=== PATIENT | male | born 1965 | race Two or more races ===

== ENCOUNTER → 2017-03-08 09:12 | Outpatient (POV) | payer MEDICAID, SELFPAY ==
[2017-03-08 09:26] VITALS: BP 134/84; PULSE 78; RESP 18; O2SAT 94; BMI 40.6
--- NOTE | 2017-03-08 09:39 | HMH.PAINSOAP ---
[facility] Pain Management SOAP Note Subjective:: This patient is a very pleasant 51-year-old white male that returns to our pain clinic today for medication refills. We have treated this patient for quite some time for chronic low back pain secondary to degenerative disc disease lumbar spine with levels. Lumbar spondylosis. Multilevel lumbar facet arthropathy. We treated the patient with injective therapy including medial branch blocks lumbar spine multiple levels. His last series of injections was October 2016. Patient reports today that injections lasted until the middle of December. Today he describes his low back pain is constant, dull, aching. He rates the pain 6/10. Patient requesting a repeat medial branch block bilateral L3-4, L4-5, L5-S1. I think this is reasonable due to the fact he gets to months relief we manage the patient with [place] 7.5 mg 1 p.o. 3 times daily. Patient reports pain medicine decreases the pain by 50%. He is not reporting side effects from the pain medication. I will refill his pain medicine today. His [place] #[id number] is been reviewed and appropriate. His UDS is been appropriate in the past. Him 2 prescriptions. Also, patient complained of right trapezius muscle spasm. Upon examination he has extreme point tenderness over the right trapezius muscle. We will attempt approval from insurance for right trapezius trigger point injection. Objective:: Wake alert oriented ?3. In no distress. Flexion extension lumbar somewhat guarded secondary to pain. Deep tendon reflexes upper and lower extremities normal. Motor upper and lower extremity normal. There is no gross sensory deficit. Gait is normal. Assessment:: Degenerative disc disease lumbar spine with levels. Lumbar radiculopathy symptoms. Lumbar facet arthropathy. Lumbar spondylosis. Myofascial pain syndrome right trapezius muscle Plan:: I will refill the patient's pain medication. 2 prescriptions for [place] 7.5 mg 1 p.o. 3 times daily. I will schedule patient for medial branch block L3-4, L4-5, L5-S1 bilateral. Also, trigger point injections of the right trapezius muscle.
--- NOTE | 2017-03-08 09:44 | P.CONS_ITS ---
[facility] Pain Management SOAP Note Subjective:: This patient is a very pleasant 51-year-old white male that returns to our pain clinic today for medication refills. We have treated this patient for quite some time for chronic low back pain secondary to degenerative disc disease lumbar spine with levels. Lumbar spondylosis. Multilevel lumbar facet arthropathy. We treated the patient with injective therapy including medial branch blocks lumbar spine multiple levels. His last series of injections was October 2016. Patient reports today that injections lasted until the middle of December. Today he describes his low back pain is constant, dull, aching. He rates the pain 6/10. Patient requesting a repeat medial branch block bilateral L3-4, L4-5, L5-S1. I think this is reasonable due to the fact he gets to months relief we manage the patient with [place] 7.5 mg 1 p.o. 3 times daily. Patient reports pain medicine decreases the pain by 50%. He is not reporting side effects from the pain medication. I will refill his pain medicine today. His [place] #[id number] is been reviewed and appropriate. His UDS is been appropriate in the past. Him 2 prescriptions. Also, patient complained of right trapezius muscle spasm. Upon examination he has extreme point tenderness over the right trapezius muscle. We will attempt approval from insurance for right trapezius trigger point injection. Objective:: Wake alert oriented ?3. In no distress. Flexion extension lumbar somewhat guarded secondary to pain. Deep tendon reflexes upper and lower extremities normal. Motor upper and lower extremity normal. There is no gross sensory deficit. Gait is normal. Assessment:: Degenerative disc disease lumbar spine with levels. Lumbar radiculopathy symptoms. Lumbar facet arthropathy. Lumbar spondylosis. Myofascial pain syndrome right trapezius muscle Plan:: I will refill the patient's pain medication. 2 prescriptions for [place] 7.5 mg 1 p.o. 3 times daily. I will schedule patient for medial branch block L3-4, L4- 5, L5-S1 bilateral. Also, trigger point injections of the right trapezius muscle.
[2017-03-08 13:14] LABS: Amphetamine/Metha Screen,Urine Negative ng/mL (<1000); Barbiturates Screen,Urine Negative ng/mL (<200); Benzodiazepines Screen,Urine Negative ng/mL (200); Cannabinoid Screen,Urine Negative ng/mL (<50); Cocaine Screen,Urine Negative ng/g (<300); Methadone Screen,Urine Negative ng/mL (<300); Opiate Screen,Urine Positive ng/mL (<300); Phencyclidine Screen,Urine Negative ng/mL (<25)
[2017-03-22 09:09] LABS: Codeine Negative (Cutoff=100); Hydrocodone Positive (.); Hydromorphone Positive (.); Morphine Negative (Cutoff=100)
[2017-03-22 10:47] LABS: Opiates Positive (.)
== END ==
PROVIDERS: PCP Family Medicine; Visit Provider Nurse Anesthetist, Certified Registered
DX: M51.16 Intervertebral disc disorders with radiculopathy, lumbar region (principal); M79.7 Fibromyalgia
CPT/HCPCS: 80305; 80361; 99212; G0480

== ENCOUNTER → 2017-04-02 12:53 | Day surgery (SDC) | payer MEDICAID, SELFPAY ==
--- NOTE | 2017-04-02 13:02 | HMH.PMPROC ---
- Procedure Date: 04/02/17 Time: 13:02 Anesthesiologist:: Raymond Rousseau MD Complications:: None Pre-procedure Diagnosis:: Degenerative disc disease of lumbar spine with lumbar spondylosis and facet arthropathy. Post-procedure Diagnosis:: Same Indications for Procedure:: She has a pleasant 51-year-old male who we are treating for low back pain with lumbar spondylosis. He had previous lumbar medial branch blocks at L3-L4, L4-L5 and L5-S1. He did well with this for several months. His pain is starting to return. We will do repeat medial branch blocks/facet joint injections at L3-L4, L4-5 and L5-S1 bilaterally. He is also on [place] 7.5 mg 3 times daily. His [place] and urine drug screen are all appropriate. We will do his injection today. Procedure Details:: Lumbar medial branch block Informed consent was obtained and the risks and benefits of the procedure was explained to the patient. The back was prepped using ChloraPrep. The skin and subcutaneous tissues were anesthetized using lidocaine. I placed 22-gauge spinal needles into the facet joint/medial branches of L3-L4, L4-L5 and L5-S1 bilaterally. Needle placement was confirmed with dye. After this we injected 3 mL bupivacaine 0.25% and Depo-Medrol 13 mg into each facet joint/medial branch of L3-L4, L5 and L5-S1 bilaterally. We used a total of 80 mg Depo-Medrol for all 3 levels bilaterally. The patient tolerated the procedure well with no complications. Plan and Disposition:: We will follow-up in 2 weeks. We will reevaluate his symptoms at that time.
[2017-04-02 13:04] VITALS: BP 140/80; PULSE 75; RESP 18; TEMP 36.7; O2SAT 97; BMI 40.6
--- NOTE | 2017-04-02 13:07 | P.PCN_ITS ---
- Procedure Date: 04/02/17 Time: 13:02 Anesthesiologist:: Raymond Rousseau MD Complications:: None Pre-procedure Diagnosis:: Degenerative disc disease of lumbar spine with lumbar spondylosis and facet arthropathy. Post-procedure Diagnosis:: Same Indications for Procedure:: She has a pleasant 51-year-old male who we are treating for low back pain with lumbar spondylosis. He had previous lumbar medial branch blocks at L3 -L4, L4-L5 and L5-S1. He did well with this for several months. His pain is starting to return. We will do repeat medial branch blocks/facet joint injections at L3-L4, L4-5 and L5-S1 bilaterally. He is also on [place] 7.5 mg 3 times daily. His [place] and urine drug screen are all appropriate. We will do his injection today. Procedure Details:: Lumbar medial branch block Informed consent was obtained and the risks and benefits of the procedure was explained to the patient. The back was prepped using ChloraPrep. The skin and subcutaneous tissues were anesthetized using lidocaine. I placed 22-gauge spinal needles into the facet joint/medial branches of L3-L4, L4-L5 and L5-S1 bilaterally. Needle placement was confirmed with dye. After this we injected 3 mL bupivacaine 0.25% and Depo-Medrol 13 mg into each facet joint/medial branch of L3-L4, L5 and L5-S1 bilaterally. We used a total of 80 mg Depo- Medrol for all 3 levels bilaterally. The patient tolerated the procedure well with no complications. Plan and Disposition:: We will follow-up in 2 weeks. We will reevaluate his symptoms at that time.
[2017-04-02 13:14] VITALS: BP 136/73; PULSE 65; RESP 18
[2017-04-02 13:17] VITALS: BP 140/80; PULSE 70; RESP 20; O2SAT 99
[2017-04-02 13:48] VITALS: BP 142/95; PULSE 75; TEMP 36.7; O2SAT 96
== END ==
PROVIDERS: Family Provider Family Medicine; PCP Family Medicine; Visit Provider Anesthesiology
DX: M79.1 Myalgia (principal)
CPT/HCPCS: 20552; 64493; 64494; 64495; J1030; Q9966

== ENCOUNTER → 2017-05-11 09:57 | Outpatient (POV) | payer MEDICAID, SELFPAY ==
[2017-05-11 10:07] VITALS: BP 162/88; PULSE 80; RESP 20; O2SAT 99; BMI 40.6
--- NOTE | 2017-05-11 10:57 | HMH.PAINSOAP ---
[facility] Pain Management SOAP Note Subjective:: Patient is a pleasant 51-year-old male who presents today for follow-up after trigger point injections and a repeat medial branch block. Patient did not get much relief from his medial branch block however he did get 90% relief from his trigger point injections. Patient's pain pattern has changed since his RFA. Patient's pain is now no longer axial in nature it is radiating down both legs with the right leg being worse than the left. Patient has had lumbar epidural steroid injections in the past with good relief. Patient rates his pain a 6 out of 10 today. Patient also been on [place] 7.51 p.o. 3 times daily for a long time. Patient states the medication is no longer as effective as it used to be. Patient is still working every day. ROS General: no recent weight change, no fever, no sleep disturbances Respiratory: no cough, no shortness of air, no recurring pulmonary infections Cardiovascular/Peripheral Vascular: No chest pain, No palpitations, no edema, no shortness of breath. Gastrointestinal: no incontinence, normal bowel movements reported Genitourinary: no incontinence Musculoskeletal: Back pain, bilateral leg pain Psychiatric: normal mood/ affect, [denies depression], [denies anxiety] Neurological: Weakness in right extremity at times, [denies balance issues] Objective:: Physical Exam General: Alert and oriented x3, no acute distress, pleasant and cooperative, [on room air] Lungs: Resps E/U, Symmetrical chest expansion, Eyes: PERRL Musculoskeletal: Flexion and extension of lumbar spine somewhat guarded secondary to pain, deep tendon reflexes normal, strength in upper and lower extremities [5/5], lately antalgic gait noted, positive straight leg test bilaterally at 30?. Neurological: speech clear, lead loader equal, no gross sensory deficits MRI-L-SPINE W/O, MRI-3D RENDERING/MYELOGRAM INDICATION: LUMBAR SPONDYLOSIS Low back pain for 5 years. Bilateral leg pain. Right foot numbness and tingling. Right radiculopathy. No known injury TECHNIQUE: Sagittal STIR, T1, T2, axial T1 and T2. On 1.5T Siemens wide bore MRI. 3-D MR myelogram image set obtained & performed on MRI workstation. Additional sagittal thin section T2 weighted dataset obtained from this latter acquisition as well (---76 CPT) COMPARISON: No previous studies FINDINGS Vertebral bodies are intact. No compression fractures or vertebral body lesions . Conus appears satisfactory ending appropriately at L1 . . There is some moderate likely deep dependent edema within the prominent subcutaneous adipose overlying the the lumbar region. This less than 6 cm AP thickness of adipose throughout the back. This is particularly evident subcutaneous fat posterior to L2, L3 and thus L4 L5/S1 mild disc space narrowing. Asymmetric disc bulge scant broad-based disc protrusion seen encroach upon right foramen.. Also facet hypertrophy more pronounced to the right L5/S1.. Together these features yield moderate right foraminal encroachment-(as seen on sagittal image 5 , 6 and axial slice 29). L4/5, disc intact. Mild facet arthropathy and posterior element hypertrophy. Only slight narrowing of the neural foramen noted but overall unimpressive at this level. L3/4 disc intact with only questionable minor foraminal bulge. Insignificant. Neural foramen adequate bilateral. L2/3 disc intact. L1/2 disc intact . T12/L1 & T11/12 disc intact unremarkable. The 3-D MR myelogram image set shows no significant narrowing of the spinal canal IMPRESSION: .........../ L5/S1. Degenerative disc space narrowing, with asymmetric bulge /mild broad-based disc protrusion which encroaches upon right foramen. Also note developing Facet hypertrophy most evident to the right contributes to the moderate right foraminal narrowing. This is the most notable finding. Does the patient have RIGHT L5 radicular sym
--- NOTE | 2017-05-11 11:01 | P.CONS_ITS ---
[facility] Pain Management SOAP Note Subjective:: Patient is a pleasant 51-year-old male who presents today for follow- up after trigger point injections and a repeat medial branch block. Patient did not get much relief from his medial branch block however he did get 90% relief from his trigger point injections. Patient's pain pattern has changed since his RFA. Patient's pain is now no longer axial in nature it is radiating down both legs with the right leg being worse than the left. Patient has had lumbar epidural steroid injections in the past with good relief. Patient rates his pain a 6 out of 10 today. Patient also been on [place] 7.51 p.o. 3 times daily for a long time. Patient states the medication is no longer as effective as it used to be. Patient is still working every day. ROS General: no recent weight change, no fever, no sleep disturbances Respiratory: no cough, no shortness of air, no recurring pulmonary infections Cardiovascular/Peripheral Vascular: No chest pain, No palpitations, no edema, no shortness of breath. Gastrointestinal: no incontinence, normal bowel movements reported Genitourinary: no incontinence Musculoskeletal: Back pain, bilateral leg pain Psychiatric: normal mood/ affect, [denies depression], [denies anxiety] Neurological: Weakness in right extremity at times, [denies balance issues] Objective:: Physical Exam General: Alert and oriented x3, no acute distress, pleasant and cooperative, [ on room air] Lungs: Resps E/U, Symmetrical chest expansion, Eyes: PERRL Musculoskeletal: Flexion and extension of lumbar spine somewhat guarded secondary to pain, deep tendon reflexes normal, strength in upper and lower extremities [5/5], lately antalgic gait noted, positive straight leg test bilaterally at 30?. Neurological: speech clear, pediatric cns equal, no gross sensory deficits MRI-L-SPINE W/O, MRI-3D RENDERING/MYELOGRAM INDICATION: LUMBAR SPONDYLOSIS Low back pain for 5 years. Bilateral leg pain. Right foot numbness and tingling. Right radiculopathy. No known injury TECHNIQUE: Sagittal STIR, T1, T2, axial T1 and T2. On 1.5T Siemens wide bore MRI. 3-D MR myelogram image set obtained & performed on MRI workstation. Additional sagittal thin section T2 weighted dataset obtained from this latter acquisition as well (---76 CPT) COMPARISON: No previous studies FINDINGS Vertebral bodies are intact. No compression fractures or vertebral body lesions . Conus appears satisfactory ending appropriately at L1 . . There is some moderate likely deep dependent edema within the prominent subcutaneous adipose overlying the the lumbar region. This less than 6 cm AP thickness of adipose throughout the back. This is particularly evident subcutaneous fat posterior to L2, L3 and thus L4 L5/S1 mild disc space narrowing. Asymmetric disc bulge scant broad-based disc protrusion seen encroach upon right foramen.. Also facet hypertrophy more pronounced to the right L5/S1.. Together these features yield moderate right foraminal encroachment-(as seen on sagittal image 5 , 6 and axial slice 29). L4/5, disc intact. Mild facet arthropathy and posterior element hypertrophy. Only slight narrowing of the neural foramen noted but overall unimpressive at this level. L3/4 disc intact with only questionable minor foraminal bulge. Insignificant. Neural foramen adequate bilateral. L2/3 disc intact. L1/2 disc intact . T12/L1 & T11/12 disc intact unremarkable. The 3-D MR myelogram image set shows no significant narrowing of the spinal canal IM
--- NOTE | 2017-05-13 14:05 | PC.PHONENOTE ---
called in Rx for Diclofenac 75mg BID with 1 refill to pt's pharmacy
== END ==
PROVIDERS: Family Provider Family Medicine; PCP Family Medicine; Visit Provider Clinical Nurse Specialist Family Health
DX: M54.16 Radiculopathy, lumbar region (principal)
CPT/HCPCS: 99212

== ENCOUNTER 2017-05-27 14:00 | Day surgery (SDC) | payer MEDICAID, SELFPAY ==
[2017-05-27 14:12] VITALS: BP 145/80; BP 155/74; BP 156/90; PULSE 70; PULSE 75; PULSE 88; RESP 18; TEMP 36.8; O2SAT 98; BMI 39.9
[2017-05-27 14:18] VITALS: BP 139/79; PULSE 78; RESP 18; O2SAT 96
--- NOTE | 2017-05-27 14:18 | P.PCN_ITS ---
- Procedure Date: 05/27/17 Time: 14:17 Anesthesiologist:: Raymond Rousseau MD Complications:: None Pre-procedure Diagnosis:: Degenerative disc disease of lumbar spine with lumbar radiculopathy symptoms and bulging disc Post-procedure Diagnosis:: Same Indications for Procedure:: Patient is a pleasant 51-year-old male who we are treating for low back pain with lumbar radiculopathy symptoms. He did not get much relief from medial branch blocks however he did get significant relief from trigger point injections. Most of his pain now is in his back radiating down his legs. We will do a lumbar epidural steroid injection today to see if this gives him relief of his pain symptoms. Procedure Details:: Lumbar epidural steroid injection informed consent was obtained and the risk and benefits of the procedure was explained to the patient. The patient was taken to the procedure room. The patient was placed prone on the procedure table. The patient was prepped and draped in sterile fashion. C-arm fluoroscopy was used to view the lumbar spine. Skin and subcutaneous tissues were anesthetized using lidocaine. I placed an 18-gauge epidural needle and advanced into the L4-L5 interspace using fluoroscopic guidance and [id number] to air. After confirmation of needle placement in the epidural space with dye I injected 2 mL of lidocaine 1.5 % with Depo-Medrol 80 mg. Patient tolerated the procedure well with no complications. Plan and Disposition:: We will follow-up in 2 weeks. Will reevaluate symptoms at that time.
== END 2017-05-27 14:15 | disposition home or self-care (01) ==
LOC: SC.PAINP 14:02
PROVIDERS: Family Provider Family Medicine; PCP Family Medicine; Visit Provider Anesthesiology
DX: M51.16 Intervertebral disc disorders with radiculopathy, lumbar region (principal)
CPT/HCPCS: 62323; J1040; Q9966

== ENCOUNTER → 2017-06-14 10:01 | Outpatient (POV) | payer MEDICAID, SELFPAY ==
[2017-06-14 11:32] VITALS: BP 141/82; PULSE 73; RESP 20; O2SAT 98; BMI 40.6
--- NOTE | 2017-06-14 12:29 | HMH.PAINSOAP ---
[facility] Pain Management SOAP Note Subjective:: Patient is a 51-year-old male who we are treating for low back pain with lumbar radiculopathy symptoms. Patient has done well with lumbar steroid injections in the past. Patient states that he is doing well with this 1. Patient does have some residual pain. Patient states his medication is not effective for him at this time. Patient also states that he broke out in a rash after his last injection. Patient states he still has the rash. Patient did not take any allergy medicine or Benadryl. Patient rates his pain a 7 out of 10 today. Patient is still trying to work full-time. Patient currently on Percocet 5 mg 1 p.o. 3 times daily. Patient's SAHIL #[id number] reviewed and appropriate. Patient will go for urine drug screen today. ROS General: no recent weight change, no fever, no sleep disturbances Respiratory: no cough, no shortness of air, no recurring pulmonary infections Cardiovascular/Peripheral Vascular: No chest pain, No palpitations, no edema, no shortness of breath. Gastrointestinal: no incontinence, normal bowel movements reported Genitourinary: no incontinence Musculoskeletal: Back pain, leg pain Psychiatric: normal mood/ affect Neurological: [denies weakness in extremities], [denies balance issues] Objective:: Physical Exam General: Alert and oriented x3, no acute distress, pleasant and cooperative, [on room air] Lungs: Resps E/U, Symmetrical chest expansion, Eyes: PERRL Musculoskeletal: Flexion and extension of lumbar spine somewhat guarded secondary to pain, deep tendon reflexes normal, strength in upper and lower extremities [5/5], slightly antalgic gait noted Neurological: speech clear, studio technician video operator equal, no gross sensory deficits Assessment:: Generative disc disease of the lumbar spine with lumbar spondylosis and lumbar radiculopathy. Plan:: We will give the patient Percocet 7.5 mg 1 p.o. 4 times daily. We will give him 2 months worth of prescriptions and follow-up with him in 2 months. We will see if this helps. Patient has had this regimen with an orthopedic surgeon and it did seem to work well. At this time we will not go forward with any other injections due to his rash. I discussed with the patient he should take some allergy medication. Patient's Sahil reviewed. Patient's urine drug screen is pending. Dr. Rousseau has reviewed this chart and agrees with this plan of care. Patient has been prescribed a controlled substance after being counseled on the medication, medication safety, and possible side effects. SAHIL report has been obtained and reviewed prior to prescription and found to be appropriate. Opioid contract was reviewed and signed by the patient, and that they have agreed to all of the terms set forth by our compliance program. This note was dictated using voice recognition software and may contain errors or omissions
--- NOTE | 2017-06-14 12:51 | P.CONS_ITS ---
[facility] Pain Management SOAP Note Subjective:: Patient is a 51-year-old male who we are treating for low back pain with lumbar radiculopathy symptoms. Patient has done well with lumbar steroid injections in the past. Patient states that he is doing well with this 1. Patient does have some residual pain. Patient states his medication is not effective for him at this time. Patient also states that he broke out in a rash after his last injection. Patient states he still has the rash. Patient did not take any allergy medicine or Benadryl. Patient rates his pain a 7 out of 10 today. Patient is still trying to work full-time. Patient currently on Percocet 5 mg 1 p.o. 3 times daily. Patient's SAHIL #[id number] reviewed and appropriate. Patient will go for urine drug screen today. ROS General: no recent weight change, no fever, no sleep disturbances Respiratory: no cough, no shortness of air, no recurring pulmonary infections Cardiovascular/Peripheral Vascular: No chest pain, No palpitations, no edema, no shortness of breath. Gastrointestinal: no incontinence, normal bowel movements reported Genitourinary: no incontinence Musculoskeletal: Back pain, leg pain Psychiatric: normal mood/ affect Neurological: [denies weakness in extremities], [denies balance issues] Objective:: Physical Exam General: Alert and oriented x3, no acute distress, pleasant and cooperative, [ on room air] Lungs: Resps E/U, Symmetrical chest expansion, Eyes: PERRL Musculoskeletal: Flexion and extension of lumbar spine somewhat guarded secondary to pain, deep tendon reflexes normal, strength in upper and lower extremities [5/5], slightly antalgic gait noted Neurological: speech clear, franchise field consultant equal, no gross sensory deficits Assessment:: Generative disc disease of the lumbar spine with lumbar spondylosis and lumbar radiculopathy. Plan:: We will give the patient Percocet 7.5 mg 1 p.o. 4 times daily. We will give him 2 months worth of prescriptions and follow-up with him in 2 months. We will see if this helps. Patient has had this regimen with an orthopedic surgeon and it did seem to work well. At this time we will not go forward with any other injections due to his rash. I discussed with the patient he should take some allergy medication. Patient's Sahil reviewed. Patient's urine drug screen is pending. Dr. Rousseau has reviewed this chart and agrees with this plan of care. Patient has been prescribed a controlled substance after being counseled on the medication, medication safety, and possible side effects. SAHIL report has been obtained and reviewed prior to prescription and found to be appropriate. Opioid contract was reviewed and signed by the patient, and that they have agreed to all of the terms set forth by our compliance program. This note was dictated using voice recognition software and may contain errors or omissions
[2017-06-14 13:50] LABS: Amphetamine/Metha Screen,Urine Negative ng/mL (<1000); Barbiturates Screen,Urine Negative ng/mL (<200); Benzodiazepines Screen,Urine Negative ng/mL (200); Cannabinoid Screen,Urine Negative ng/mL (<50); Cocaine Screen,Urine Negative ng/g (<300); Methadone Screen,Urine Negative ng/mL (<300); Opiate Screen,Urine Negative ng/mL (<300); Phencyclidine Screen,Urine Negative ng/mL (<25)
[2017-06-20 18:50] LABS: Opiates Negative (Cutoff=100); Oxymorphone (GC/MS) 402 ng/mL (Cutoff=100)
== END ==
PROVIDERS: Family Provider Family Medicine; PCP Family Medicine; Visit Provider Clinical Nurse Specialist Family Health
DX: M54.16 Radiculopathy, lumbar region (principal); Z79.891 Long term (current) use of opiate analgesic
CPT/HCPCS: 80305; 80361; 80365; 99212; G0480

== ENCOUNTER → 2017-08-09 09:34 | Outpatient (POV) | payer MEDICAID, SELFPAY ==
[2017-08-09 10:21] VITALS: BP 153/91; PULSE 77; RESP 18; O2SAT 98; BMI 40.6
--- NOTE | 2017-08-09 10:22 | HMH.PAINSOAP ---
[facility] Pain Management SOAP Note Subjective:: Patient is a pleasant 51-year-old male who presents today for medication refills at his last vist we increased his medication to Percocet 7.5 milligrams 1 p.o. 4 times daily. Patient states that this helps quite a bit. He denies any side effects to the medication. Patient states he is having pain at nighttime which is keeping him awake. Patient never tried gabapentin. Patient and I discussed potential nerve stimulation in the future. Patient is interested in this. Patient rates his pain a 6 out of 10 today. Patient is still working full-time. Patient's SAHIL #[id number] reviewed and appropriate. Patient's drug screens been appropriate in the past. ROS General: no recent weight change, no fever, no sleep disturbances Respiratory: no cough, no shortness of air, no recurring pulmonary infections Cardiovascular/Peripheral Vascular: No chest pain, No palpitations, no edema, no shortness of breath. Gastrointestinal: no incontinence, normal bowel movements reported Genitourinary: no incontinence Musculoskeletal: Back pain, bilateral knee pain, neck pain Psychiatric: normal mood/ affect Neurological: [denies weakness in extremities], [denies balance issues] Objective:: Physical Exam General: Alert and oriented x3, no acute distress, pleasant and cooperative, [on room air] Lungs: Resps E/U, Symmetrical chest expansion, Eyes: PERRL Musculoskeletal: Flexion and extension of lumbar spine somewhat guarded secondary to pain, deep tendon reflexes normal, strength in upper and lower extremities [5/5], [abnormal gait noted] Neurological: speech clear, fuel management handler equal, no gross sensory deficits Assessment:: Degenerative disc disease of the lumbar spine with lumbar radiculopathy, lumbar spondylosis, bilateral knee pain Plan:: We will refill the patient's Percocet 7.5 mg 1 p.o. 4 times daily. Will give him 2 months worth of prescriptions and follow-up with him in 2 months. Patient and I did discuss neuro stimulation he did seem interested in this. However we will try gabapentin 300 mg 1 p.o. nightly prior. Patient and I discussed potential side effects. Patient's Sahil and urine drug screen both reviewed. Dr. Rousseau has reviewed this chart and agrees with this plan of care. Patient has been prescribed a controlled substance after being counseled on the medication, medication safety, and possible side effects. SAHIL report has been obtained and reviewed prior to prescription and found to be appropriate. Opioid contract was reviewed and signed by the patient, and that they have agreed to all of the terms set forth by our compliance program. This note was dictated using voice recognition software and may contain errors or omissions
--- NOTE | 2017-08-09 10:25 | P.CONS_ITS ---
[facility] Pain Management SOAP Note Subjective:: Patient is a pleasant 51-year-old male who presents today for medication refills at his last vist we increased his medication to Percocet 7.5 milligrams 1 p.o. 4 times daily. Patient states that this helps quite a bit. He denies any side effects to the medication. Patient states he is having pain at nighttime which is keeping him awake. Patient never tried gabapentin. Patient and I discussed potential nerve stimulation in the future. Patient is interested in this. Patient rates his pain a 6 out of 10 today. Patient is still working full-time. Patient's SAHIL #[id number] reviewed and appropriate. Patient's drug screens been appropriate in the past. ROS General: no recent weight change, no fever, no sleep disturbances Respiratory: no cough, no shortness of air, no recurring pulmonary infections Cardiovascular/Peripheral Vascular: No chest pain, No palpitations, no edema, no shortness of breath. Gastrointestinal: no incontinence, normal bowel movements reported Genitourinary: no incontinence Musculoskeletal: Back pain, bilateral knee pain, neck pain Psychiatric: normal mood/ affect Neurological: [denies weakness in extremities], [denies balance issues] Objective:: Physical Exam General: Alert and oriented x3, no acute distress, pleasant and cooperative, [ on room air] Lungs: Resps E/U, Symmetrical chest expansion, Eyes: PERRL Musculoskeletal: Flexion and extension of lumbar spine somewhat guarded secondary to pain, deep tendon reflexes normal, strength in upper and lower extremities [5/5], [abnormal gait noted] Neurological: speech clear, delinquent tax collector equal, no gross sensory deficits Assessment:: Degenerative disc disease of the lumbar spine with lumbar radiculopathy, lumbar spondylosis, bilateral knee pain Plan:: We will refill the patient's Percocet 7.5 mg 1 p.o. 4 times daily. Will give him 2 months worth of prescriptions and follow-up with him in 2 months. Patient and I did discuss neuro stimulation he did seem interested in this. However we will try gabapentin 300 mg 1 p.o. nightly prior. Patient and I discussed potential side effects. Patient's Sahil and urine drug screen both reviewed. Dr. Rousseau has reviewed this chart and agrees with this plan of care. Patient has been prescribed a controlled substance after being counseled on the medication, medication safety, and possible side effects. SAHIL report has been obtained and reviewed prior to prescription and found to be appropriate. Opioid contract was reviewed and signed by the patient, and that they have agreed to all of the terms set forth by our compliance program. This note was dictated using voice recognition software and may contain errors or omissions
== END ==
PROVIDERS: Family Provider Family Medicine; PCP Family Medicine; Visit Provider Clinical Nurse Specialist Family Health
DX: M47.26 Other spondylosis with radiculopathy, lumbar region (principal); M25.562 Pain in left knee; M25.561 Pain in right knee
CPT/HCPCS: 99212

== ENCOUNTER → 2017-10-25 10:00 | Outpatient (POV) | payer MEDICAID, SELFPAY ==
[2017-10-25 10:30] VITALS: BP 163/99; PULSE 75; RESP 18; O2SAT 96; BMI 39.1
--- NOTE | 2017-10-25 11:09 | HMH.PAINSOAP ---
[facility] Pain Management SOAP Note Subjective:: Patient is a 51-year-old male who presents today for medication refills. Patient was started on gabapentin and his last visit and he states he is doing well with it at bedtime. Patient is currently being medically managed on Percocet 7.5 mg 1 p.o. 4 times daily. He denies side effects to this he states that it helps up to 80%. Patient's SAHIL #[id number] reviewed and appropriate. Patient's urine drug screen has been appropriate in the past. Patient states he is still having a little bit of nerve pain. We will change his gabapentin to twice daily dose. He rates his pain a 5 out of 10 today. Mostly in his low back and legs ROS General: no recent weight change, no fever, no sleep disturbances Respiratory: no cough, no shortness of air, no recurring pulmonary infections Cardiovascular/Peripheral Vascular: No chest pain, No palpitations, no edema, no shortness of breath. Gastrointestinal: no incontinence, normal bowel movements reported Genitourinary: no incontinence Musculoskeletal: Back pain, leg pain, knee pain Psychiatric: normal mood/ affect Neurological: [denies weakness in extremities], [denies balance issues] Objective:: Physical Exam General: Alert and oriented x3, no acute distress, pleasant and cooperative, [on room air] Lungs: Resps E/U, Symmetrical chest expansion, Eyes: PERRL Musculoskeletal: Flexion and extension of lumbar spine somewhat guarded secondary to pain, deep tendon reflexes normal, strength in upper and lower extremities [5/5], [abnormal gait noted] Neurological: speech clear, material cutter equal, no gross sensory deficits Assessment:: Degenerative disc disease lumbar spine with lumbar radiculopathy, lumbar spondylosis, bilateral knee pain Plan:: Refill the patient's Percocet 7.5 mg 1 p.o. 4 times daily. We will give him 2 months worth of prescriptions and follow-up with him in 2 months. We will change his gabapentin to 300 mg [address] Rousseau has reviewed this chart and agrees with this plan of care. We will also start the patient on Celebrex 100 mg 1 p.o. twice daily. Patient has been prescribed a controlled substance after being counseled on the medication, medication safety, and possible side effects. SAHIL report has been obtained and reviewed prior to prescription and found to be appropriate. Opioid contract was reviewed and signed by the patient, and that they have agreed to all of the terms set forth by our compliance program. This note was dictated using voice recognition software and may contain errors or omissions
--- NOTE | 2017-10-25 11:12 | P.CONS_ITS ---
[facility] Pain Management SOAP Note Subjective:: Patient is a 51-year-old male who presents today for medication refills. Patient was started on gabapentin and his last visit and he states he is doing well with it at bedtime. Patient is currently being medically managed on Percocet 7.5 mg 1 p.o. 4 times daily. He denies side effects to this he states that it helps up to 80%. Patient's SAHIL #[id number] reviewed and appropriate. Patient's urine drug screen has been appropriate in the past. Patient states he is still having a little bit of nerve pain. We will change his gabapentin to twice daily dose. He rates his pain a 5 out of 10 today. Mostly in his low back and legs ROS General: no recent weight change, no fever, no sleep disturbances Respiratory: no cough, no shortness of air, no recurring pulmonary infections Cardiovascular/Peripheral Vascular: No chest pain, No palpitations, no edema, no shortness of breath. Gastrointestinal: no incontinence, normal bowel movements reported Genitourinary: no incontinence Musculoskeletal: Back pain, leg pain, knee pain Psychiatric: normal mood/ affect Neurological: [denies weakness in extremities], [denies balance issues] Objective:: Physical Exam General: Alert and oriented x3, no acute distress, pleasant and cooperative, [on room air] Lungs: Resps E/U, Symmetrical chest expansion, Eyes: PERRL Musculoskeletal: Flexion and extension of lumbar spine somewhat guarded secondary to pain, deep tendon reflexes normal, strength in upper and lower extremities [5/5], [abnormal gait noted] Neurological: speech clear, academic support specialist equal, no gross sensory deficits Assessment:: Degenerative disc disease lumbar spine with lumbar radiculopathy, lumbar spondylosis, bilateral knee pain Plan:: Refill the patient's Percocet 7.5 mg 1 p.o. 4 times daily. We will give him 2 months worth of prescriptions and follow-up with him in 2 months. We will change his gabapentin to 300 mg [address] Rousseau has reviewed this chart and agrees with this plan of care. We will also start the patient on Celebrex 100 mg 1 p.o. twice daily. Patient has been prescribed a controlled substance after being counseled on the medication, medication safety, and possible side effects. SAHIL report has been obtained and reviewed prior to prescription and found to be appropriate. Opioid contract was reviewed and signed by the patient, and that they have agreed to all of the terms set forth by our compliance program. This note was dictated using voice recognition software and may contain errors or omissions
[2017-10-25 11:18] LABS: Amphetamine/Metha Screen,Urine Negative ng/mL (<1000); Barbiturates Screen,Urine Negative ng/mL (<200); Benzodiazepines Screen,Urine Negative ng/mL (<200); Cannabinoid Screen,Urine Negative ng/mL (<50); Cocaine Screen,Urine Negative ng/mL (<300); Methadone Screen,Urine Negative ng/mL (<300); Opiate Screen,Urine Positive ng/mL (<300); Phencyclidine Screen,Urine Negative ng/mL (<25)
[2017-10-29 12:20] LABS: Oxycodone (GC/MS) 1237 ng/mL (Cutoff=100)
[2017-10-29 13:14] LABS: Opiates Negative (Cutoff=100); Oxymorphone (GC/MS) 2634 ng/mL (Cutoff=100)
== END ==
PROVIDERS: Family Provider Family Medicine; PCP Family Medicine; Visit Provider Clinical Nurse Specialist Family Health
DX: M51.16 Intervertebral disc disorders with radiculopathy, lumbar region (principal); M47.896 Other spondylosis, lumbar region; M25.561 Pain in right knee; M25.562 Pain in left knee
CPT/HCPCS: 80305; 80361; 80365; 99212; G0480

== ENCOUNTER → 2017-12-20 10:06 | Outpatient (POV) | payer MEDICAID, SELFPAY ==
[2017-12-20 10:24] VITALS: BP 152/87; PULSE 76; RESP 18; O2SAT 98; BMI 39.9
--- NOTE | 2017-12-20 10:33 | HMH.PAINSOAP ---
[facility] Pain Management SOAP Note Subjective:: Patient is a pleasant 51-year-old male who presents today for medication refills. Patient has been started on gabapentin 300 mg 1 p.o. twice daily. He states that this has done well for him. Patient is currently being medically managed with Percocet 7.5 mg 1 p.o. 4 times a day. He denies any side effects. He says it helps however he does have some increased pain with his shahzad work. Patient's SAHIL #[id number] reviewed and appropriate. Patient has been alternating between Tylenol and ibuprofen. He rates his pain a 7 out of 10 today. This is a little higher than his typical pain. It is all mostly in his low back and legs. ROS General: no recent weight change, no fever, no sleep disturbances Respiratory: no cough, no shortness of air, no recurring pulmonary infections Cardiovascular/Peripheral Vascular: No chest pain, No palpitations, no edema, no shortness of breath. Gastrointestinal: no incontinence, normal bowel movements reported Genitourinary: no incontinence Musculoskeletal: Back pain, leg pain Psychiatric: normal mood/ affect Neurological: [denies weakness in extremities], [denies balance issues] Objective:: Physical Exam General: Alert and oriented x3, no acute distress, pleasant and cooperative, [on room air] Lungs: Resps E/U, Symmetrical chest expansion, Eyes: PERRL Musculoskeletal: Flexion and extension of lumbar spine somewhat guarded secondary to pain, deep tendon reflexes normal, strength in upper and lower extremities [5/5], slightly antalgic gait noted Neurological: speech clear, staffing branch manager equal, no gross sensory deficits Assessment:: Degenerative disc disease lumbar spine with lumbar radiculopathy, lumbar spondylosis, bilateral knee pain Plan:: We will refill the patient's Percocet and change it to 10 mg 1 p.o. 3 times daily we will give him 1 month prescription. Patient will follow-up in 3 months. Patient is going to call us if he needs to be seen after 1 month for medication changes. Patient will continue his gabapentin 300 mg [address] Rousseau is reviewed this chart and agrees with this plan and plan of care. Patient has been prescribed a controlled substance after being counseled on the medication, medication safety, and possible side effects. SAHIL report has been obtained and reviewed prior to prescription and found to be appropriate. Opioid contract was reviewed and signed by the patient, and that they have agreed to all of the terms set forth by our compliance program. This note was dictated using voice recognition software and may contain errors or omissions
== END ==
PROVIDERS: Family Provider Family Medicine; PCP Family Medicine; Visit Provider Clinical Nurse Specialist Family Health
DX: M51.16 Intervertebral disc disorders with radiculopathy, lumbar region (principal); M47.896 Other spondylosis, lumbar region; M25.562 Pain in left knee; M25.561 Pain in right knee
CPT/HCPCS: 99213

== ENCOUNTER → 2018-03-21 09:57 | Outpatient (POV) | payer MEDICAID, SELFPAY ==
[2018-03-21 10:10] VITALS: BP 144/93; PULSE 85; RESP 18; O2SAT 98; BMI 40.1
--- NOTE | 2018-03-21 10:24 | HMH.PAINSOAP ---
[facility] Pain Management SOAP Note Subjective:: Is a pleasant 52-year-old male who presents today for medication refills. Patient is currently on cassette 10 mg 1 p.o. 3 times daily along with gabapentin 300 mg 1 p.o. twice daily. Patient is doing well with this denies side effects. He rates his pain today a 7 out of 10 mostly in his hip and back. Patient has not had an epidural injection for quite some time and has had good success with it in the past. Patient Kaspar reviewed and appropriate. Patient's urine drug screen has been appropriate. Patient is not on any anticoagulation therapy. Patient is continuing a home stretching program. With his injections he gets about 80% relief up to 4 months of his pain symptoms. ROS General: no recent weight change, no fever, no sleep disturbances Respiratory: no cough, no shortness of air, no recurring pulmonary infections Cardiovascular/Peripheral Vascular: No chest pain, No palpitations, no edema, no shortness of breath. Gastrointestinal: no incontinence, normal bowel movements reported Genitourinary: no incontinence Musculoskeletal: Back pain, leg pain Psychiatric: normal mood/ affect Neurological: [denies weakness in extremities], [denies balance issues] Objective:: Physical Exam General: Alert and oriented x3, no acute distress, pleasant and cooperative, [on room air] Lungs: Resps E/U, Symmetrical chest expansion, Eyes: PERRL Musculoskeletal: Flexion and extension of lumbar spine somewhat guarded secondary to pain, deep tendon reflexes normal, strength in upper and lower extremities [5/5], antalgic gait noted, positive straight leg raise test on the right side at 30 degrees Neurological: speech clear, building energy consultant equal, no gross sensory deficits Assessment:: degenerative disc disease lumbar spine with lumbar radiculopathy, lumbar spondylosis Plan:: We will schedule the patient for an L4-L5 lumbar epidural steroid injection. I will follow-up with him after this. We will refill the patient's Percocet 10 mg 1 p.o. 3 times daily and gabapentin 300 mg 1 p.o. twice daily and give him 2 months worth of medication. I will see him back after his injection. Patient's been instructed to call the office if he has any issues prior to his next appointment. Patient has been prescribed a controlled substance after being counseled on the medication, medication safety, and possible side effects. SAHIL report has been obtained and reviewed prior to prescription and found to be appropriate. Opioid contract was reviewed and signed by the patient, and that they have agreed to all of the terms set forth by our compliance program. Dr. Rousseau has reviewed this note and agrees with this plan of care. This note was dictated using voice recognition software and may contain errors or omissions
[2018-03-21 13:16] LABS: Amphetamine/Metha Screen,Urine Negative ng/mL (<1000); Barbiturates Screen,Urine Negative ng/mL (<200); Benzodiazepines Screen,Urine Negative ng/mL (<200); Cannabinoid Screen,Urine Negative ng/mL (<50); Cocaine Screen,Urine Negative ng/mL (<300); Methadone Screen,Urine Negative ng/mL (<300); Opiate Screen,Urine Negative ng/mL (<300); Phencyclidine Screen,Urine Negative ng/mL (<25)
[2018-03-25 05:16] LABS: Oxycodone (GC/MS) 461 ng/mL (Cutoff=100)
[2018-03-25 06:16] LABS: Opiates Negative (Cutoff=100); Oxymorphone (GC/MS) 853 ng/mL (Cutoff=100)
== END ==
PROVIDERS: PCP Family Medicine; Visit Provider Clinical Nurse Specialist Family Health
DX: M51.16 Intervertebral disc disorders with radiculopathy, lumbar region (principal); M47.896 Other spondylosis, lumbar region; Z79.899 Other long term (current) drug therapy
CPT/HCPCS: 80305; 80361; 80365; 99213; G0480

== ENCOUNTER → 2018-05-09 15:23 | Outpatient (POV) | payer MEDICAID, SELFPAY ==
[2018-05-09 15:50] VITALS: BP 146/89; PULSE 87; RESP 18; O2SAT 98; BMI 40.1
--- NOTE | 2018-05-10 08:24 | HMH.PAINSOAP ---
[facility] Pain Management SOAP Note Subjective:: Patient is a pleasant 52-year-old male who we are treating for low back pain with lumbar radiculopathy. He is following up after his epidural injection. He states he got 3 days of relief. Patient is currently being medically managed with Percocet 10 1 tab p.o. 3 times daily. Patient and I had a long discussion in regards to where we go treating his pain from here. Patient had talked about a nerve stimulator along with intrathecal therapy. Patient's been a review information that I gave him in order to see if either one looks beneficial for him. Patient is trying to be more functional. Patient's SAHIL #[id number] reviewed and appropriate. Urine drug screen has been appropriate. Patient denies side effects to his medication. ROS General: no recent weight change, no fever, no sleep disturbances Respiratory: no cough, no shortness of air, no recurring pulmonary infections Cardiovascular/Peripheral Vascular: No chest pain, No palpitations, no edema, no shortness of breath. Gastrointestinal: no incontinence, normal bowel movements reported Genitourinary: no incontinence Musculoskeletal: Back pain, leg pain, neck pain Psychiatric: normal mood/ affect Neurological: [denies weakness in extremities], [denies balance issues] Objective:: Physical Exam General: Alert and oriented x3, no acute distress, pleasant and cooperative, [on room air] Lungs: Resps E/U, Symmetrical chest expansion, Eyes: PERRL Musculoskeletal: Flexion and extension of cervical and lumbar spine somewhat guarded secondary to pain, deep tendon reflexes normal, strength in upper and lower extremities [5/5], [abnormal gait noted] Neurological: speech clear, driller machine equal, no gross sensory deficits Assessment:: Degenerative disc disease lumbar spine with lumbar radiculopathy symptoms along with degenerative disc disease cervical spine cervical radiculopathy symptoms Plan:: We will refill the patient's Percocet 10 mg 1 p.o. 3 times daily we will give him 1 month worth of medication. We will also give him information in regards to both intrathecal therapy and neuro stimulation. Patient will be followed up within 3 months. 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 Patient has been instructed to call the office if he has any issues prior to his next appointment. Patient has been prescribed a controlled substance after being counseled on the medication, medication safety, and possible side effects. SAHIL report has been obtained and reviewed prior to prescription and found to be appropriate. Opioid contract was reviewed and signed by the patient, and that they have agreed to all of the terms set forth by our compliance program. Dr. Rousseau has reviewed this note and agrees with this plan of care. This note was dictated using voice recognition software and may contain errors or omissions
--- NOTE | 2018-05-10 08:27 | P.CONS_ITS ---
[facility] Pain Management SOAP Note Subjective:: Patient is a pleasant 52-year-old male who we are treating for low back pain with lumbar radiculopathy. He is following up after his epidural injection. He states he got 3 days of relief. Patient is currently being medically managed with Percocet 10 1 tab p.o. 3 times daily. Patient and I had a long discussion in regards to where we go treating his pain from here. Patient had talked about a nerve stimulator along with intrathecal therapy. Patient's been a review information that I gave him in order to see if either one looks beneficial for him. Patient is trying to be more functional. Patient's SAHIL #[id number] reviewed and appropriate. Urine drug screen has been appropriate. Patient denies side effects to his medication. ROS General: no recent weight change, no fever, no sleep disturbances Respiratory: no cough, no shortness of air, no recurring pulmonary infections Cardiovascular/Peripheral Vascular: No chest pain, No palpitations, no edema, no shortness of breath. Gastrointestinal: no incontinence, normal bowel movements reported Genitourinary: no incontinence Musculoskeletal: Back pain, leg pain, neck pain Psychiatric: normal mood/ affect Neurological: [denies weakness in extremities], [denies balance issues] Objective:: Physical Exam General: Alert and oriented x3, no acute distress, pleasant and cooperative, [on room air] Lungs: Resps E/U, Symmetrical chest expansion, Eyes: PERRL Musculoskeletal: Flexion and extension of cervical and lumbar spine somewhat guarded secondary to pain, deep tendon reflexes normal, strength in upper and lower extremities [5/5], [abnormal gait noted] Neurological: speech clear, flour distributor equal, no gross sensory deficits Assessment:: Degenerative disc disease lumbar spine with lumbar radiculopathy symptoms along with degenerative disc disease cervical spine cervical radiculopathy symptoms Plan:: We will refill the patient's Percocet 10 mg 1 p.o. 3 times daily we will give him 1 month worth of medication. We will also give him information in regards to both intrathecal therapy and neuro stimulation. Patient will be followed up within 3 months. Patient is able to grape picker his prescriptions in the interim. Patient has been instructed to call the office if he has any issues prior to his next appointment. Patient has been prescribed a controlled substance after being counseled on the medication, medication safety, and possible side effects. SAHIL report has been obtained and reviewed prior to prescription and found to be appropriate. Opioid contract was reviewed and signed by the patient, and that they have agreed to all of the terms set forth by our compliance program. Dr. Rousseau has reviewed this note and agrees with this plan of care. This note was dictated using voice recognition software and may contain errors or omissions
== END ==
PROVIDERS: PCP Family Medicine; Visit Provider Clinical Nurse Specialist Family Health
DX: M51.16 Intervertebral disc disorders with radiculopathy, lumbar region (principal); M50.10 Cervical disc disorder with radiculopathy, unspecified cervical region
CPT/HCPCS: 99213

== ENCOUNTER → 2018-07-26 17:09 | Outpatient (CLI) | payer MEDICAID, SELFPAY ==
[2018-07-26 19:01] LABS: Amphetamine/Metha Screen,Urine Negative ng/mL (<1000); Barbiturates Screen,Urine Negative ng/mL (<200); Benzodiazepines Screen,Urine Positive ng/mL (<200); Cannabinoid Screen,Urine Negative ng/mL (<50); Cocaine Screen,Urine Positive ng/mL (<300); Methadone Screen,Urine Negative ng/mL (<300); Opiate Screen,Urine Positive ng/mL (<300); Phencyclidine Screen,Urine Negative ng/mL (<25)
[2018-08-01 06:08] LABS: Oxycodone (GC/MS) >3000 ng/mL (Cutoff=100)
[2018-08-02 09:48] LABS: Opiates Negative (Cutoff=100); Oxymorphone (GC/MS) >3000 ng/mL (Cutoff=100)
[2018-08-12 17:41] LABS: Benzodiazepines POSITIVE; Flurazepam NEGATIVE; Lorazepam NEGATIVE
[2018-08-12 17:42] LABS: Alprazolam NEGATIVE; Benzoylecgonine (GC/MS) 241; Clonazepam NEGATIVE; Cocaine + Metabolite POSITIVE; Midazolam NEGATIVE; Temazepam POSITIVE; Triazolam NEGATIVE
== END ==
PROVIDERS: Visit Provider Clinical Nurse Specialist Family Health
DX: Z79.899 Other long term (current) drug therapy (principal)
CPT/HCPCS: 80305; 80346; 80353; 80361; 80365; G0480

== ENCOUNTER → 2018-08-16 12:59 | Outpatient (POV) | payer MEDICAID, SELFPAY ==
--- NOTE | 2018-08-16 13:13 | [facility].PAINSOAP ---
[facility] Pain Management SOAP Note Subjective:: Patient is a pleasant 52-year-old male who presents today for follow-up. Patient was getting Percocet 10 mg for months however his last urine drug screen showed positive for both benzodiazepines and cocaine. Patient is not prescribed benzodiazepines. Patient's labs were sent off for confirmation both cocaine and benzodiazepines came back as positive. We will not be able to continue his medication we discussed this. Patient understands. Patient and I discussed options in regards to moving forward it was given him the option of being sent back to his primary care physician and referred to another pain management or to continue with injection therapy. Patient would like to try geniculate block he has had multiple intra-articular knee injections in the past with limited success. Patient has had pain for over a year. He has had the replacement of his left knee. He is awaiting the replacement of his right knee. He rates his pain today a 6 out of 10. ROS General: no recent weight change, no fever, no sleep disturbances Respiratory: no cough, no shortness of air, no recurring pulmonary infections Cardiovascular/Peripheral Vascular: No chest pain, No palpitations, no edema, no shortness of breath. Gastrointestinal: no incontinence, normal bowel movements reported Genitourinary: no incontinence Musculoskeletal: Knee pain Psychiatric: normal mood/ affect Neurological: [denies weakness in extremities], [denies balance issues] Objective:: Physical Exam General: Alert and oriented x3, no acute distress, pleasant and cooperative, [on room air] Lungs: Resps E/U, Symmetrical chest expansion, Eyes: PERRL Musculoskeletal: Flexion and extension of lumbar spine somewhat guarded secondary to pain, deep tendon reflexes normal, strength in upper and lower extremities [5/5], [abnormal gait noted] decreased range of motion bilateral knees secondary to pain Neurological: speech clear, quarrying specialist equal, no gross sensory deficits Assessment:: Osteoarthritis right knee, 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 Patient will be scheduled for bilateral geniculate block. I will follow-up with the patient after this reassess his symptoms at that time. Dr. Rousseau has reviewed this note and agrees with this plan of care. This note was dictated using voice recognition software and may contain errors or omissions
--- NOTE | 2018-08-16 13:16 | P.CONS_ITS ---
[facility] Pain Management SOAP Note Subjective:: Patient is a pleasant 52-year-old male who presents today for follow- up. Patient was getting Percocet 10 mg for months however his last urine drug screen showed positive for both benzodiazepines and cocaine. Patient is not prescribed benzodiazepines. Patient's labs were sent off for confirmation both cocaine and benzodiazepines came back as positive. We will not be able to continue his medication we discussed this. Patient understands. Patient and I discussed options in regards to moving forward it was given him the option of being sent back to his primary care physician and referred to another pain management or to continue with injection therapy. Patient would like to try gen iculate block he has had multiple intra-articular knee injections in the past with limited success. Patient has had pain for over a year. He has had the replacement of his left knee. He is awaiting the replacement of his right knee. He rates his pain today a 6 out of 10. ROS General: no recent weight change, no fever, no sleep disturbances Respiratory: no cough, no shortness of air, no recurring pulmonary infections Cardiovascular/Peripheral Vascular: No chest pain, No palpitations, no edema, no shortness of breath. Gastrointestinal: no incontinence, normal bowel movements reported Genitourinary: no incontinence Musculoskeletal: Knee pain Psychiatric: normal mood/ affect Neurological: [denies weakness in extremities], [denies balance issues] Objective:: Physical Exam General: Alert and oriented x3, no acute distress, pleasant and cooperative, [on room air] Lungs: Resps E/U, Symmetrical chest expansion, Eyes: PERRL Musculoskeletal: Flexion and extension of lumbar spine somewhat guarded secondary to pain, deep tendon reflexes normal, strength in upper and lower extremities [5/5], [abnormal gait noted] decreased range of motion bilateral knees secondary to pain Neurological: speech clear, press leader equal, no gross sensory deficits Assessment:: Osteoarthritis right knee, 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 Patient will be scheduled for bilateral geniculate block. I will follow-up with the patient after this reassess his symptoms at that time. Dr. Rousseau has reviewed this note and agrees with this plan of care. This note was dictated using voice recognition software and may contain errors or omissions
[2018-08-16 15:54] VITALS: BP 142/87; PULSE 74; RESP 18; O2SAT 98; BMI 41.3
== END ==
PROVIDERS: PCP Family Medicine; Visit Provider Clinical Nurse Specialist Family Health
DX: M17.11 Unilateral primary osteoarthritis, right knee (principal); Z96.652 Presence of left artificial knee joint; M51.16 Intervertebral disc disorders with radiculopathy, lumbar region
CPT/HCPCS: 99212